=== PATIENT | male | born 2000 | race Caucasian/White ===

== ENCOUNTER 2023-02-07 13:26 | Emergency (ER) | payer BC ==
[~2023-02-07] VITALS: Ht 185 cm; Wt 83.0 kg
--- NOTE | 2023-02-07 14:56 | ED Chest Pain ---
General Chief Complaint: General Problems/Pain Stated Complaint: IRREGULAR HEART RATE Nursing Triage Note: PT STATES SMOKED SOME POT LAST NIGHT, STATES MADE HEART FEEL LIKE BEATING FAST, MADE LEGS SHAKE. PT STATES MAYBE FEELS LIKE AN ANXIETY ATTACK. PT STATES FOUND FRIEND HAVING SEIZURES AND WAS VERY SICK. HAS BEEN FEELING ANXIETY SINCE Source: patient Exam Limitations: no limitations (CLARIBEL ARCOS) History of Present Illness Date Seen by Provider: Feb 07, 2023 Time Seen by Provider: 14:54 Initial Comments Patient is a 22 male who presents ED with heart palpitation, chest pain. States last night he was smoking marijuana. Patient started having chest tightness, pressure and heart palpitations. This lasted for several minutes. Those symptoms did improve. He states today he was getting ready to drive back to [place] his car pack started having potential panic attack. States that his chest gave then started feeling short of breath with fast heart palpitations. The symptoms improved. He states he does smoke marijuana daily. He reports same marijuana without any acute changes. He denies of any alcohol or any other drug use. No known cardiac history. He states he is an anxious severiano however cannot relate this to being anxiety. No known family history of sudden cardiac . Denies current cough, abdominal pain, vomiting, diarrhea, nausea, vomiting (CLARIBEL ARCOS) Allergies and Home Medications Allergies Coded Allergies: Penicillins (Verified Allergy, Unknown, 02/07/23) Patient Home Medication List Home Medication List Reviewed: Yes (CLARIBEL ARCOS) Review of Systems Review of Systems Constitutional: No chills, No diaphoresis, No malaise, No weakness EENTM: No Double Vision, No Eye Pain Respiratory: Denies Cough, Denies Orthopnea Cardiovascular: Chest Pain Gastrointestinal: Denies Abdominal Pain, Denies Diarrhea, Denies Nausea, Denies Vomiting Genitourinary: Denies Burning, Denies Discharge, Denies Drainage, Denies Frequency Musculoskeletal: No back pain, No joint pain Skin: No change in color, No change in hair/nails (CLARIBEL ARCOS) All Other Systems Reviewed Negative Unless Noted: Yes (CLARIBEL ARCOS) Past Qplqshm-[id number]-Gcqseb Hx Patient Social History Tobacco Use?: No Substance use?: Yes Substance type: Marijuana Substance frequency: Couple times a week Alcohol Use?: Yes Alcohol type: Beer, Hard Liquor Alcohol Frequency: Couple times a week Pt feels they are or have been: No (CLARIBEL ARCOS) Immunizations Up To Date Influenza Vaccine Up-to-Date: Yes; Up-to-Date (CLARIBEL ARCOS) Physical Exam Vital Signs Vital Signs - First Documented 02/07/23 13:41 Temp 36.9 Pulse 104 Resp 20 B/P (MAP) 157/92 (113) Pulse Ox 100 (MARISA DEMPSEY MD) Vital Signs Capillary Refill : Less Than 3 Seconds (CLARIBEL ARCOS) Height, Weight, BMI Height: '" Weight: lbs. oz. kg; 24.00 BMI Method: General Appearance: No Apparent Distress, WD/WN HEENT: PERRL/EOMI, TMs Normal, Pharynx Normal Neck: Full Range of Motion, Normal Inspection, Non Tender, Supple Respiratory: Chest Non Tender, Lungs Clear, Normal Breath Sounds, No Accessory Muscle Use, No Respiratory Distress Cardiovascular: Regular Rate, Rhythm, No Edema, No Gallop, No JVD, No Murmur Gastrointestinal: Normal Bowel Sounds, No Organomegaly, No Pulsatile Mass, Non Tender Extremity: Normal Capillary Refill, Normal Inspection, Normal Range of Motion, Non Tender Neurologic/Psychiatric: Alert, Oriented x3, No Motor/Sensory Deficits, Normal Mood/Affect (CLARIBEL ARCOS) Progress/Results/Core Measures Results/Orders Lab Results Laboratory Tests Test 02/07/23 15:11 Range/Units White Blood Count 6.8 4.3-11.0 10^3/uL Red Blood Count 4.88 4.30-5.52 10^6/uL Hemoglobin 14.9 13.3-17.7 g/dL Hematocrit 43 40-54 % Mean Corpuscular Volume 87 80-99 fL Mean Corpuscular Hemoglobin 31 25-34 pg Mean Corpuscular Hemoglobin Concent 35 32-36 g/dL Red Cell Distribution Width 12.2 10.0-14.5 % Platelet Count 257 130-400 10^3/uL Mean Platelet Volume 10.3 9.0-12.2 fL Immature Granulocyte % (Auto) 0 % Neutrophils (%) (Auto) 65 42-75 % Lymphocytes (%) (Auto) 27 12-44 % Monocytes (%) (Auto) 7 0-12 % Eosinophils (%) (Auto) 0 0-10 % Basophils (%) (Auto) 0 0-10 % Neutrophils # (Auto) 4.4 1.8-7.8 10^3/uL Lymphocytes # (Auto) 1.9 1.0-4.0 10^3/uL Monocytes # (Auto) 0.5 0.0-1.0 10^3/uL Eosinophils # (Auto) 0.0 0.0-0.3 10^3/uL Basophils # (Auto) 0.0 0.0-0.1 10^3/uL Immature Granulocyte # (Auto) 0.0 0.0-0.1 10^3/uL Sodium Level 140 135-145 MMOL/L Potassium Level 3.9 3.6-5.0 MMOL/L Chloride Level 103 98-107 MMOL/L Carbon Dioxide Level 28 21-32 MMOL/L Anion Gap 9 5-14 MMOL/L Blood Urea Nitrogen 12 7-18 MG/DL Creatinine 0.93 0.60-1.30 MG/DL Estimat Glomerular Filtration Rate 121 BUN/Creatinine Ratio 13 Glucose Level 106 H 70-105 MG/DL Calcium Level 9.7 8.5-10.1 MG/DL Corrected Calcium 8.5-10.1 MG/DL Magnesium Level 1.9 1.6-2.4 MG/DL Total Bilirubin 0.7 0.1-1.0 MG/DL Aspartate Amino Transf (AST/SGOT) 205 H 5-34 U/L Alanine Aminotransferase (ALT/SGPT) 74 H 0-55 U/L Alkaline Phosphatase 45 40-136 U/L Troponin I < 0.028 <0.028 NG/ML Total Protein 7.7 6.4-8.2 GM/DL Albumin 4.6 H 3.2-4.5 GM/DL (MARISA DEMPSEY MD) My Orders Orders - MARISA DEMPSEY MD Ekg Tracing (02/07/23 14:18) Monitor-Rhythm Ecg Trace Only (02/07/23 14:18) (MARISA DEMPSEY MD) Vital Signs/I&O 02/07/23 02/07/23 13:41 16:31 Temp 36.9 Pulse 104 84 Resp 20 16 B/P (MAP) 157/92 (113) 118/82 Pulse Ox 100 98 (MARISA DEMPSEY MD) Blood Pressure Mean: 113 Comment Sinus rhythm, 71 bpm, QRS duration 101 MS, QTc 416 MS (CLARIBEL ARCOS) Departure Communication (PCP) Patient presents the ED with heart palpitations, chest pain possible panic attack. Patient states he is an anxious person. No family history of sudden cardiac . No known history of cardiac disease, asthma. Patient had episode of heart palpitations, chest pain after smoking marijuana yesterday and today. On arrival he is currently asymptomatic of the chest pain but is currently feeling jittery. Was given a small dose of Ativan with improvement. No obvious tremoring or twitching. EKG showed normal sinus rhythm without evidence of ST elevation, depression, WPW, Brugada syndrome. Chest x-ray was unremarkable. Lab work essentially unremarkable of normal troponins, CBC and CMP. Patient was observed here in the ED. Recommended urinalysis to check a drug screen to look for any other substance in his urine. He was not able to provide a urine and did not want to wait. He states he is currently traveling to [place]. Patient has someone to go since he just received a small dose of Ativan. I discussed proper follow-up with primary care physician for further evaluation. If continue having chest pain return back to ED. If this continues to become an issue with changes made from smoking marijuana recommend cardiology outpatient follow-up. If having syncope or chest pain with exertion recommend returning back to ED and avoid any exertional activities. Patient agrees with plan of action. Patient is not tachycardic or hypoxic. Afebrile. He appears w ell and nontoxic. Provided ways to manage his anxiety. appears to be more anxiety related (CLARIBEL ARCOS) Impression Primary Impression: Chest pain Disposition: 01 HOME, SELF-CARE Condition: Stable Departure-Patient Inst. Decision time for Depature: 16:16 (CLARIBEL ARCOS) Referrals: KATHRIN BLANK MD NO,LOCAL PHYSICIAN (PCP) Primary Care Physician Patient Instructions: Chest Pain (DC) Add. Discharge Instructions: Recommend controlling breathing during episodes. If continue worsening pain recommend return back to ED. Avoid smoking marijuana. Follow-up with your primary care physician for further evaluation. All discharge instructions reviewed with patient and/or family. Voiced understanding. ATTENDING PHYSICIAN NOTE: I was physically present as attending physician in the emergency department during the care of this patient, but I was not directly involved in the decision making or delivery of care for this patient. (MARISA DEMPSEY MD) CLARIBEL ARCOS Feb 07, 2023 14:56 MARISA DEMPSEY MD Feb 08, 2023 09:23
[2023-02-07 15:17] LABS: BASOPHILS % (AUTO) 0 % (0-10); EOSINOPHILS % (AUTO) 0 % (0-10); HEMATOCRIT 43 % (40-54); HEMOGLOBIN 14.9 g/dL (13.3-17.7); LYMPHOCYTES # (AUTO) 1.9 10^3/uL (1.0-4.0); LYMPHOCYTES % (AUTO) 27 % (12-44); MEAN CORPUSCULAR HEMOGLOBIN 31 pg (25-34); MEAN CORPUSCULAR HGB CONC 35 g/dL (32-36); MEAN CORPUSCULAR VOLUME 87 fL (80-99); MEAN PLATELET VOLUME 10.3 fL (9.0-12.2); MONOCYTES # (AUTO) 0.5 10^3/uL (0.0-1.0); MONOCYTES % (AUTO) 7 % (0-12); NEUTROPHILS # (AUTO) 4.4 10^3/uL (1.8-7.8); NEUTROPHILS % (AUTO) 65 % (42-75); PLATELET COUNT 257 10^3/uL (130-400); WHITE BLOOD COUNT 6.8 10^3/uL (4.3-11.0)
--- NOTE | 2023-02-07 15:24 | Diagnostic Imaging Report ---
EXAMINATION: Chest 1 view HISTORY: Chest pain. COMPARISON: None available. FINDINGS: The lung volumes are normal. No focal consolidation is seen. No large pleural effusion or pneumothorax is seen. The cardiomediastinal silhouette is normal in size and contour. No acute osseous abnormality is seen. IMPRESSION: 1. No acute pleuroparenchymal process. Dictated by: Dictated on workstation # [id number]
[2023-02-07 15:26] LABS: ALBUMIN 4.6 GM/DL (3.2-4.5); CHLORIDE 103 MMOL/L (98-107); POTASSIUM 3.9 MMOL/L (3.6-5.0); SODIUM 140 MMOL/L (135-145)
[2023-02-07 15:28] LABS: CALCIUM 9.7 MG/DL (8.5-10.1)
[2023-02-07 15:29] LABS: GLUCOSE 106 MG/DL (70-105); TOTAL PROTEIN 7.7 GM/DL (6.4-8.2)
[2023-02-07 15:30] LABS: CARBON DIOXIDE 28 MMOL/L (21-32)
[2023-02-07 15:31] LABS: BILIRUBIN,TOTAL 0.7 MG/DL (0.1-1.0)
[2023-02-07 15:32] LABS: ALKALINE PHOSPHATASE 45 U/L (40-136)
[2023-02-07 15:33] LABS: CREATININE SERUM 0.93 MG/DL (0.60-1.30); GFR ESTIMATED 121
[2023-02-07 15:34] LABS: BUN/CREATININE RATIO 13
[2023-02-07 15:35] LABS: ALANINE AMINOTRANSFERASE 74 U/L (0-55); MAGNESIUM 1.9 MG/DL (1.6-2.4)
[2023-02-07 16:31] VITALS: BP 118/82
== END 2023-02-07 16:30 | disposition home or self-care (01) ==
LOC: ER 13:31
DX: R07.9 Chest pain, unspecified (principal); Z28.310 Unvaccinated for COVID-19
CPT/HCPCS: 36415; 71045; 80053; 83735; 84484; 85025; 93005; 93041